=== PATIENT | female | born 1940 | race Hispanic/Latino ===

== ENCOUNTER 2023-12-31 20:21 | Emergency (ER) | payer SELFPAY ==
[~2023-12-31] VITALS: Ht 152.4 cm; Wt 68.9 kg
[2023-12-31 21:58] VITALS: PULSE 70; RESP 16; TEMP 97.7
[2024-01-01 02:21] VITALS: BP 154/62; O2SAT 97
== END 2024-01-01 02:15 | disposition other institution (70) ==
LOC: ER 20:32
DX: H33.22 Serous retinal detachment, left eye (principal); W18.39XA Other fall on same level, initial encounter; Y92.89 Other specified places as the place of occurrence of the external cause
CPT/HCPCS: 70450; 70486; 72125; 99284